=== PATIENT | male | born 1960 | race Caucasian/White ===

== ENCOUNTER → 2023-10-15 | Outpatient (CLI) | payer MEDICAID ==
[2023-10-15 13:31] VITALS: BP 189/86; PULSE 83; RESP 16
--- NOTE | 2023-10-15 14:16 | P.PAINPG ---
PQRS Measure Charge Sheet Comment: HISTORY OF PRESENT ILLNESS: A 63 yr old male as a referral from Dr Quijano presents today w severe and chronic LBP> 1 yr secondary to DDD, spondylosis and facet arthropathy without myelopathy for evaluation. Pt states pain level is provoked at 6 /10 in intensity, constant, localized in the lower lumbar spine, predominantly axial, achy in character w occasional shooting pain towards the buttocks and LEs. Pain is provoked by weight bearing activity. Pain is alleviated by chiropractic treatments q3wks since lumbar surgery (2003), physician guided home stretches every morning since 2009, medications (Lavon 7.5/325mg #120, Valium 5mg #60), repositioning and rest . Oswestry axial pain score at 30. PMH: OA, PSH: L4-S1 (2003), Cervical Surgery w hardware (2005), Thoracic Kyphoplasty, R Knee Surgery (2009) SH: Never smoker, Occasional ETOH use, Cannabis use. . FH: Non contributory All: See list Meds: See list REVIEW OF ORGAN SYSTEMS: CONSTITUTIONAL: No fevers or chills. No recent weight loss. NEUROLOGICAL: + numbness and tingling along the distal extremities. No seizure disorders or headaches. MUSCULOSKELETAL: + pain PSYCHIATRIC: Denies current depression or suicidal thoughts. Physical Examinations : Constitutional : Cooperative , not in acute distress . Neurologic : Cranial nerve II to XII intact. No focal neurological deficits. Psychiatric : alert & oriented x 3. Matching mood & appropriate affect. Judgment & insight intact. Musculoskeletal : Cervical Spine +Anterior Incisional Scar intact Motor strength in the deltoid and biceps: Normal right side. Normal Left side Motor strength biceps and the wrist extensors: Normal right side . Normal left side Motor strength in the triceps muscle: Normal right side. Normal left side Deep tendon reflexes: Normal at the biceps. Normal at Brachioradialis. Normal at triceps Vertebral body tenderness to deep palpation over Cervical facet loading test: positive bilaterally Spurling test: positive bilaterally Neck distraction test: positive bilaterally Elisa sign: positive bilaterally Lumbar spine Motor strength lower extremities ,thigh and legs 5/5 Right side , 5/5 Left side Deep tendon reflexes : Normal Knee Jerk. Normal Ankle Jerk Vertebral body tenderness over Del Angel Test positive Lumbar facet Loading Test: positive Right / positive Left Range of motion of the lumbar spine Flexion 30 degrees, extension 10 degrees Straight Leg Raise test: Left/ Right positive at degrees Mac test: positive right / positive left. Severe tenderness over the Sacroiliac joint on the Right / Left sides Gaenslen test: positive bilaterally Seated flexion test: positive bilaterally. Sacral spine : Severe tenderness over the Sacroiliac joint: right side / left side Range of motion: Flexion of the lumbar spine <60 degrees Range of motion: Extension of the lumbar spine <20 degrees Gaenslen's Test positive Mac test: positive right side / left side Thigh Thrust Test Sacral Thrust Test Imaging: None on file Assessment/ Plan : Lumbar radiculopathy s/p post laminectomy syndrome, Cervical radiculopathy s/p ACDF Pt is not a narcotic medication candidate. Discussed opiate/ narcotic agreement and pt verbalized understanding. Neurontin 300mg #30 NR Use, side effects, adverse reactions, safe storage discussed. Will obtain imaging reports and provide to the clinic. All questions answered. I have spent greater than 30 minutes on patient care today. Dr Mack was available by phone for the evaluation of this patient. The time was used to review the medical records including relevant urine studies and Prescription history (MAPs), review of the available imaging, evaluation and examination of the patient, coordination of care with the medical staff and if applicable referring physicians, as well as creation of the medical record Home Medications: Ambulatory Orders Gabapentin [Neurontin] 300 mg PO DAILY 30 Days #30 cap 10/15/23 Controlled Substance Measures - Controlled Substance Measures Is patient prescribed a controlled substance at discharge?: No
== END ==
LOC: PNWHC3 13:13
PROVIDERS: ATTEND Specialist
DX: M96.1 Postlaminectomy syndrome, not elsewhere classified (principal); M50.00 Cervical disc disorder with myelopathy, unspecified cervical region; F11.90 Opioid use, unspecified, uncomplicated; M47.26 Other spondylosis with radiculopathy, lumbar region; M43.22 Fusion of spine, cervical region; M50.10 Cervical disc disorder with radiculopathy, unspecified cervical region
CPT/HCPCS: 99211